=== PATIENT | female | born 1985 | race Two or more races ===

== ENCOUNTER 2018-09-03 10:26 | Emergency (ER) | payer OTHER ==
[~2018-09-03] VITALS: Ht 160 cm; Wt 132.4 kg
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
--- NOTE | 2018-09-03 11:00 | NUR ---
DR RAMOS AT BEDSIDE. 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
--- NOTE | 2018-09-03 11:10 | NUR ---
PT SENT EMAIL TO [facility]. AWAITING REPLY FROM
--- NOTE | 2018-09-03 11:52 | NUR ---
Patient discharged to home in stable condition. Written and verbal after care instructions given. Patient verbalizes understanding of instruction.
[2018-09-03 11:59] VITALS: BP 170/110
== END 2018-09-03 11:59 | disposition home or self-care (01) ==
LOC: ER 10:26
DX: F43.9 Reaction to severe stress, unspecified (principal); F29 Unspecified psychosis not due to a substance or known physiological condition